=== PATIENT | female | born 1985 | race Caucasian/White ===

== ENCOUNTER 2018-05-04 21:03 | Emergency (ER) | payer OTHER ==
[~2018-05-04] VITALS: Ht 160 cm; Wt 80.7 kg
[2018-05-04 21:12] VITALS: BP 130/76
--- NOTE | 2018-05-04 21:16 | NUR ---
TO BED # 11 AMBULATORY, REPORT GIVEN TO PAMELA GONCALVES
--- NOTE | 2018-05-04 21:16 | NUR ---
32/ came in w c/o LT flank pain, intermittent x 2 weeks. Reports hematuria today, denies dysuria, fever/chills, N/V/D. LT flank with tenderness to palpation. Denies PMH
[2018-05-04] MEDS ORDERED: KETOROLAC 30 MG/ML VIAL IM ONE (22:50)
[2018-05-04] MEDS ORDERED: CYCLOBENZAPRINE 10 MG TAB PO ONE (22:55)
[2018-05-04] MEDS ORDERED: ACETAMINOPHEN EXTRA STRENGTH 500 MG TAB PO ONE (22:55)
--- NOTE | 2018-05-04 23:20 | NUR ---
Patient discharged with v/s stable. Written and verbal after care instructions given and explained. Patient alert, oriented and verbalized understanding of instructions. Ambulatory with steady gait. All questions addressed prior to discharge. ID band removed. Patient advised to follow up with PMD. Rx of FLEXERIL, IBUPROFEN given. Patient educated on indication of medication including possible reaction and side effects. Opportunity to ask questions provided and answered.
[2018-05-04 23:22] VITALS: BP 110/74
== END 2018-05-04 23:20 | disposition home or self-care (01) ==
LOC: MED 21:03
DX: S39.012A Strain of muscle, fascia and tendon of lower back, initial encounter (principal); X58.XXXA Exposure to other specified factors, initial encounter; Y93.89 Activity, other specified; Y92.89 Other specified places as the place of occurrence of the external cause; Y99.8 Other external cause status
CPT/HCPCS: 81002; 81025; 96372; 99283; J1885